=== PATIENT | female | born 1955 | race Caucasian/White ===

== ENCOUNTER 2017-12-05 04:18 | Inpatient (IN) ==
[2017-12-05] MEDS ORDERED: 0.9 % Sodium Chloride 1,000 ML IVC ONE (04:50)
--- NOTE | 2017-12-05 04:54 | Emergency Department Note ---
Disposition Clinical Impression: Multifocal pneumonia, Hyponatremia, Hypokalemia, Elevated serum creatinine Episode of syncope Qualifiers: Syncope type: unspecified Qualified Code(s): R55 - Syncope and collapse Disposition: Admitted As Inpatient Condition: Good Referrals: Ester Khan DO [Primary Care Provider] - Forms: ED Satisfaction Letter Syncope HPI - General Chief Complaint: ED Syncope Stated Complaint: syncopal episode Time Seen by Provider: 12/05/17 04:22 Source: patient Mode of arrival: private vehicle Limitations: no limitations Nursing Notes Reviewed: Yes Vital Signs Reviewed: Yes - History of Present Illness HPI Narrative: 62-year-old female history of hypertension, hyperlipidemia who presents to the ER via EMS due to a syncopal episode. Patient states prior to arrival she is set up after getting up out of bed and immediately felt lightheaded and passed out. States she denies prior history of syncopal episodes in the past. She had no prodromal symptoms including chest pain or shortness of breath. She reports currently that she states just feels achy all over. She has no current headache, chest pain, abdominal pain. No other complaints. 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 Number of episodes: 1 Prodromal Symptoms: lightheaded Witnessed: yes - by other Context: getting out of bed, standing up Injuries Sustained Associated with Event: none Current Symptoms: other (Generalized aches) History: none Treatments prior to arrival: none Associated trauma secondary to event: No - Related Data Home Medications Medication Instructions Recorded Confirmed ALPRAZolam 05/06/17 Aspirin 05/06/17 Chlorpheniramine Maleate 05/06/17 Claritin 05/06/17 Hydrochlorothiazide 05/06/17 Levothyroxine 05/06/17 Melatonin 05/06/17 Metoprolol 05/06/17 PriLOSEC 05/06/17 Proair Hfa 05/06/17 Vitamin D 05/06/17 05/06/17 Previous Rx's Medication Instructions Recorded Benzonatate [Tessalon] 100 mg PO TID #15 capsule 05/06/17 Acetaminophen [Tylenol] 500 mg PO Q6HR PRN #20 tablet 09/29/17 Azithromycin [Azithromycin 6-Tab 250 mg PO PER PKG DI #6 tab 09/29/17 Pack] Fluticasone Propionate Nasal 1 spray NS DAILY #1 bottle 09/29/17 [Flonase] Amoxicillin/Clavulanate [Augmentin] 875 mg PO BIDWM #20 tablet 11/29/17 Benzonatate [Tessalon] 100 mg PO TID #20 capsule 11/29/17 Promethazine [Phenergan] 12.5 mg PO Q8HR PRN 3 Days #10 mg 11/29/17 methylPREDNISolone [Medrol] 4 mg PO DAILY 6 Days #21 tablet 11/29/17 Allergies Allergy/AdvReac Type Severity Reaction Status Date / Time No Known Allergies Allergy Verified 12/02/17 23:06 All systems ED: reviewed and negative except as stated. Cardiovascular: Denies: chest pain Respiratory: Denies: dyspnea Gastrointestinal: Denies: abdominal pain Neurological: Reports: weakness. Denies: headache, numbness, paresthesias Past Medical History - Past Medical History Attestation: Yes The following information was validated with the patient. Source: patient Medical history: Reports: aortic aneurysm, asthma, hyperlipidemia, hypertension - Social History Smoking Status: Never smoker Smokeless Tobacco Status: No Alcohol use: Reports: none Drug use: Reports: none Physical Exam - General Limitations: no limitations General appearance: alert, in no apparent distress - Head Head exam: atraumatic, normocephalic - Eye Eye exam: Present: normal appearance - ENT ENT exam: normal exam - Neck Neck exam: Present: normal inspection, full ROM - Chest Chest inspection: Present: normal inspection, symmetric chest wall rise - Respiratory Respiratory exam: Present: normal lung sounds bilaterally - Cardiovascular Cardiovascular exam: Present: regular rate, normal rhythm, normal heart sounds - Abdominal Exam Abdominal exam: Present: soft, Non-Tender. Absent: tenderness - Extremities Exam Extremities exam: Present: normal inspection, full ROM - Expanded Upper Extremity Exam Shoulder exam: Present: normal inspection, full ROM Arm exam: Present: normal inspection, full ROM Elbow exam: Present: normal inspection, full ROM Forearm/Wrist exam: Present: normal inspection, full ROM Hand exam: Present: normal inspection, full ROM - Expanded Lower Extremity Exam Hip/Pelvis exam: Present: normal inspection, full ROM Upper leg exam: Present: normal inspection, full ROM Knee exam: Present: normal inspection, full ROM Lower leg exam: Present: normal inspection, full ROM Ankle exam: Present: normal inspection, full ROM Foot/toe exam: Present: normal inspection, full ROM - Neurological Exam Neurological exam: Present: alert, other (GCS 15. Alert. Answers questions appropriately. Moves all extremities equally. Nonfocal neurologic exam.) - Skin Skin exam: Present: warm, dry Course Course Narrative: Patient seen and examined. Her syncope was provoked by positional change. We will get an EKG, chest x-ray as well as his labs. Patient given IV fluids. - Reevaluation(s) Reevaluation #1: Discussed with patient that I reviewed her most recent CT showing an aortic aneurysm and we would further evaluate her syncope for a dissection study. Reevaluation #2: Discussed results of imaging and labs with the patient. She is agreeable with admission to the hospital. We will give her Rocephin and Zithromax. She is noted to be hyponatremic, hypokalemic with a metabolic alkalosis. She is not on a loop diuretic nor has she had protracted vomiting. We will replace her potassium here and check a magnesium level. Given her hyponatremia and pneumonia we will also check a Legionella antigen. Vital Signs Temperature 98.2 F 12/05/17 04:20 Pulse Rate 98 12/05/17 04:20 Respiratory Rate 20 12/05/17 04:20 Blood Pressure 131/58 12/05/17 04:20 O2 Sat by Pulse Oximetry 93 12/05/17 04:20 Temperature 98.2 F 12/05/17 04:20 Pulse Rate 82 12/05/17 06:30 Respiratory Rate 18 12/05/17 06:30 Blood Pressure 133/70 12/05/17 06:30 O2 Sat by Pulse Oximetry 95 12/05/17 06:30 Oxygen Delivery Oxygen Delivery Nasal Cannula Syncope - [facility] Narrative Medical decision making narrative: 62-year-old female presents to the ER via EMS due to syncopal episode. It was positional upon standing. She also reports generalized weakness and not feeling well with a cough on and off since October. She had a prior history of aortic aneurysm so we pursued a CTA of her chest which showed no evidence of enlargement however she is noted to have multifocal pneumonia. She is afebrile with a normal white count here. She is noted to have some metabolic derangements of unknown etiology. She is on hydrochlorothiazide and recently did finish a course of steroids for one week. I do not suspect adrenal insufficiency. Patient given Rocephin and Zithromax. We did give her 1 L of IV fluids for low GFR in the setting of contrast administration. Patient to be admitted to the hospitalist service for syncopal episode, multifocal pneumonia, hyponatremia, hypokalemia. - Lab Data Lab results reviewed: Yes I reviewed the patient's lab results. Result diagrams: 12/05/17 04:39 12/05/17 04:39 Lab Results 12/05/17 12/05/17 12/05/17 Range/Units 04:39 04:39 04:39 WBC 5.8 (4.3-11.1) K/mcL RBC 4.76 (3.82-4.97) M/mcL Hgb 14.1 (11.5-15.4) g/dL Hct 41.1 (35.3-44.9) % MCV 86.3 (83.0-100.0) fL MCH 29.6 (28.0-33.3) pg MCHC 34.3 (31.6-35.5) g/dL RDW 13.0 (11.5-14.5) % Plt Count 175 (140-400) K/mcL MPV 9.0 L (9.4-12.4) fL Immature Gran % 0.5 (0-4) % Seg Neutrophils % 80.5 % Lymphocytes % 11.6 % Monocytes % 7.1 % Eosinophils % 0.0 % Basophils % 0.3 % Neutrophils # 4.7 (1.6-8.9) K/mcL Lymphocytes # 0.7 (0.6-4.6) K/mcL Monocytes # 0.4 (0.0-1.3) K/mcL Eosinophils # 0.0 (0.0-0.6) K/mcL Basophils # 0.0 (0.0-0.2) K/mcL PT 11.4 (9.4-12.1) Seconds INR 1.1 APTT 25.4 L (26.0-36.0) Seconds Sodium 125 L (136-145) mEq/L Potassium 3.4 L (3.5-5.1) mEq/L Chloride 88 L (98-107) mEq/L Carbon Dioxide 31 H (23-29) mEq/L BUN 25 H (8-23) mg/dL Creatinine 1.21 H (0.60-1.20) mg/dL Est GFR ( Amer) 55 L (> 60) Est GFR (Non-Af Amer) 45 L (> 60) BUN/Creatinine Ratio 21 (6-26) Glucose 176 H (70-105) mg/dL Calculated Osmolality 269 L (280-300) Calcium 8.5 L (8.6-10.3) mg/dL Troponin I (< 0.04) ng/mL 12/05/17 Range/Units 04:39 WBC (4.3-11.1) K/mcL RBC (3.82-4.97) M/mcL Hgb (11.5-15.4) g/dL Hct (35.3-44.9) % MCV (83.0-100.0) fL MCH (28.0-33.3) pg MCHC (31.6-35.5) g/dL RDW (11.5-14.5) % Plt Count (140-400) K/mcL MPV (9.4-12.4) fL Immature Gran % (0-4) % Seg Neutrophils % % Lymphocytes % % Monocytes % % Eosinophils % % Basophils % % Neutrophils # (1.6-8.9) K/mcL Lymphocytes # (0.6-4.6) K/mcL Monocytes # (0.0-1.3) K/mcL Eosinophils # (0.0-0.6) K/mcL Basophils # (0.0-0.2) K/mcL PT (9.4-12.1) Seconds INR APTT (26.0-36.0) Seconds Sodium (136-145) mEq/L Potassium (3.5-5.1) mEq/L Chloride (98-107) mEq/L Carbon Dioxide (23-29) mEq/L BUN (8-23) mg/dL Creatinine (0.60-1.20) mg/dL Est GFR ( Amer) (> 60) Est GFR (Non-Af Amer) (> 60) BUN/Creatinine Ratio (6-26) Glucose (70-105) mg/dL Calculated Osmolality (280-300) Calcium (8.6-10.3) mg/dL Troponin I < 0.03 (< 0.04) ng/mL - Radiology Data Radiology results reviewed: Yes I reviewed the patient's radiology results. Abdomen/Pelvis CTA 12/05/17 05:02 IMPRESSION: Ascending aorta is again noted to be dilated measuring 4.3 cm. No evidence of aortic dissection or acute aortic injury. Multifocal pneumonia. Follow-up to resolution recommended. No acute intra-abdominal or intrapelvic abnormality. D/ / Yocasta Feliciano MD / Yocasta Feliciano MD Interpreting Provider: Yocasta Feliciano MD Chest CTA 12/05/17 05:02 IMPRESSION: Ascending aorta is again noted to be dilated measuring 4.3 cm. No evidence of aortic dissection or acute aortic injury. Multifocal pneumonia. Follow-up to resolution recommended. No acute intra-abdominal or intrapelvic abnormality. D/ / Yocasta Feliciano MD / Yocasta Feliciano MD Interpreting Provider: Yocasta Feliciano MD - EKG Data EKG attestation: Yes I reviewed and interpreted this EKG. EKG results narrative: EKG demonstrates sinus rhythm with a rate of 96 bpm. Left axis. Normal intervals. Normal R-wave progression. There is mild less than [address] depression in leads V3V6. No ST elevations. or changes from previous EKG include mild ST depression. S.B.A.R. - S.B.A.R. Situation: Demographics, MOA Background: Presenting Complaint, Relevant PMH, Meds, & Allergies Assessment: Vital Signs, Course and respsone to treatment, Exam Concerns, Patient/Family Expectation, Pertinant Lab Results, Outstanding Labs Recommendation: Barrier(s) to disposition, Recommendation based on pending studies, treatments, or consults S.B.A.R. Report Given to: Dr. Apollo DomínguezBTrungACarmela Repor Time: 06:50 Attestation Statement - Attestation Attestation: I, Jordin Gaspar MD, personally evaluated this patient and discussed their management with the resident physician. I reviewed the resident's note and agree with the documented findings, medical decision making, and plan of care. 62-year-old female presents to the emergency department by ambulance after she had a syncopal episode at home. Patient states that she awoke and got out of bed to go to the bathroom. She felt dizzy and lightheaded when she stood up. After a few steps the dizziness and lightheadedness became worse and patient passed out. She states that she did hit her head but denies any headache or pain in her head or scalp. No neck pain. No other pain or injury. Patient does have a history of an ascending aortic aneurysm but denies any chest or back pain. She denies any palpitations. She did feel short of breath. She states that she became clammy. On examination patient is a well-developed obese female in no acute distress. She is alert and oriented 3. There is no cyanosis or diaphoresis. Neck is supple and nontender with no lymphadenopathy and full range of motion. No carotid bruits. Chest is nontender to palpation. Breath sounds are clear and equal bilaterally. Heart regular rate and rhythm. Abdomen soft and nontender with normal bowel sounds. No gross focal neurological deficits. Labs reviewed. EKG shows normal sinus rhythm with a heart rate 94. She does have anterolateral T-wave inversions however this is unchanged from a previous EKG from 6 days ago. CTA of the chest and abdomen and pelvis showed: Ascending aorta is again noted to be dilated measuring 4.3 cm. No evidence of aortic dissection or acute aortic injury. Multifocal pneumonia. No acute intra -abdominal or intrapelvic abnormality. The hospitalist, Dr. Bustillos, was consulted and accepted admission the patient.
[2017-12-05 04:59] LABS: Basophils % 0.3 %; Hematocrit 41.1 % (35.3-44.9); Hemoglobin 14.1 g/dL (11.5-15.4); Immature Granulocytes % 0.5 % (0-4); Lymphocytes # 0.7 K/mcL (0.6-4.6); Lymphocytes % 11.6 %; Mean Corpuscular HGB Conc 34.3 g/dL (31.6-35.5); Mean Corpuscular Hemoglobin 29.6 pg (28.0-33.3); Mean Corpuscular Volume 86.3 fL (83.0-100.0); Monocytes # 0.4 K/mcL (0.0-1.3); Monocytes % 7.1 %; Neutrophils # 4.7 K/mcL (1.6-8.9); Platelet Count 175 K/mcL (140-400); Red Blood Count 4.76 M/mcL (3.82-4.97); Segmented Neutrophils % 80.5 %
[2017-12-05 05:12] LABS: Calcium 8.5 mg/dL (8.6-10.3); Potassium 3.4 mEq/L (3.5-5.1)
[2017-12-05 05:36] LABS: INR 1.1; Prothrombin Time 11.4 Seconds (9.4-12.1)
[2017-12-05 05:38] LABS: Activated Partial Thrombo Time 25.4 Seconds (26.0-36.0)
[2017-12-05] MEDS ORDERED: Azithromycin 500 MG in D5% in Water 250 ML IVPB ONE (06:22)
[2017-12-05] MEDS ORDERED: cefTRIAXone 1,000 MG in Water for inj. (sterile) 20 ML 10 ML IVP ONE (06:22)
[2017-12-05 07:40] LABS: Bilirubin,Urine Negative (Negative); Blood,Urine Small (Negative); Clarity,Urine Cloudy (Clear); Color,Urine Yellow (Yellow); Glucose,Urine (UA) Normal (Normal); Ketones,Urine Negative (Negative); Leukocyte Esterase,Urine Negative (Negative); Nitrite,Urine Negative (Negative); PH,Urine 6.5 pH Units (5.0-8.0); Protein,Urine Negative (Neg-Trace); Specific Gravity,Urine 1.024 (1.010-1.025); Urobilinogen,Urine Normal (Normal)
[2017-12-05 07:42] LABS: Bacteria,Urine None Seen per hpf (None-Few); Hyaline Casts,Urine None Seen per lpf (None-Few); Squamous Epithelial Cell,Urine Many per lpf (None-Few); WBC,Urine 0-3 per hpf (0-3)
--- NOTE | 2017-12-05 07:55 | Internal Med History&Physical ---
Date of Encounter: 12/05/17 Time of Encounter: 07:50 Assessment and Plan (1) Episode of syncope Current visit: Yes Status: Acute resent patient is very suggestive of vasodepressor syncopevs orthostatic hypotension. IV hydration and obtain 2-D echo and monitor on telemetry and cardiology consult Qualifiers: Syncope type: unspecified Qualified Code(s): R55 - Syncope and collapse (2) Hypokalemia Current visit: Yes Status: Acute due to vommiting (3) Hyponatremia Current visit: Yes Status: Acute Likely hypoosmolar hypovolemic hyponatremia was started on normal saline hydration (4) Multifocal pneumonia Current visit: Yes Status: Acute We will start patient on Zosyn she is afebrile white count is normal Internal Medicine - H&P: HPI Chief complaint: syncope Admitted From: Emergency Dept Plans for Post Hospital Care: Home History of present illness: Ms. Rosales is a 62 year old female Patient with history of hypertension, obesity, high cholesterol, asthma, aortic aneurysm. Patient woke up this morning about 2;30 am to go to the restroom she suddenly felt lightheaded and woozy and then she called her but before he can respond she passed out. Patient was then brought to the emergency room she was not having any chest pain no prior cardiac event history , no shortness of breath . in the last few days she has had some dry cough as nonproductive some subjective fever no chills has some episode of vomiting In the emergency room evaluation she was afebrile blood pressure was normal CTA of the chest shows multifocal pneumonia there is no evidence of pulmonary embolism because of history of aneurysm that was also evaluated no aortic dissection and aneurysm measured 4.3 cm. Also has some electrolyte abnormalities na 125 potassium 3.4 and some minor Greyson creatinine 1.2 patient was admitted and started on antibiotic. We will consult cardiology and obtain 2-D echo. Past Med Surg Social Fam HX - Past Medical History Medical history: aortic aneurysm, asthma, hyperlipidemia, hypertension - Social History Smoking Status: Never smoker Smokeless Tobacco Status: No Alcohol use: none Drug use: none Internal Medicine - H&P: Meds Albuterol Sulfate [Proair Hfa] 1 puff IH AD 05/06/17 [History] Aspirin [Lo-Dose Aspirin EC] 81 mg PO DAILY 05/06/17 [History] Levothyroxine Sodium [Levoxyl] 75 mcg PO DAILY 05/06/17 [History] Loratadine [Claritin] 10 mg PO DAILY 05/06/17 [History] Melatonin [Melatin] 3 mg PO HS 05/06/17 [History] Metoprolol Succinate 100 mg PO DAILY 05/06/17 [History] Omeprazole [PriLOSEC] 20 mg PO DAILY 05/06/17 [History] hydroCHLOROthiazide [Hydrochlorothiazide] 25 mg PO DAILY 05/06/17 [History] Fluticasone Propionate Nasal [Flonase] 1 spray NS DAILY #1 bottle 09/29/17 [Rx] Amoxicillin/Clavulanate [Augmentin] 875 mg PO BIDWM #20 tablet 11/29/17 [Rx] Benzonatate [Tessalon] 100 mg PO TID #20 capsule 11/29/17 [Rx] Promethazine [Phenergan] 12.5 mg PO Q8HR PRN 3 Days #10 mg 11/29/17 [Rx] Fluticasone Propionate [Flovent Hfa] 1 puff IH DAILY 12/05/17 [History] Losartan Potassium [Cozaar] 100 mg PO DAILY 12/05/17 [History] Pravastatin Sodium 10 mg PO DAILY 12/05/17 [History] 3 Allergy/AdvReac Type Severity Reaction Status Date / Time No Known Allergies Allergy Verified 12/02/17 23:06 All Systems PM: A 10-system review of systems was performed and is negative for pertinent findings except as documented above in the HPI. - Constitutional Constitutional: no chills, no fever(s), no night sweats - EENT Eyes: no change in vision, no discharge, no pain, no photophobia Ears: no ear discharge, no ear pain, no tinnitus Nose, mouth and throat: no dysphagia, no nasal discharge, no neck pain, no sore throat - Cardiovascular Cardiovascular ROS IM: lightheadedness, syncope - Respiratory Respiratory: no cough, no dyspnea, no wheezing, no excessive phlegm production - Gastrointestinal Gastrointestinal: no abdominal pain, no diarrhea, no hematemesis, no hematochezia, no melena, no nausea, no vomiting - Genitourinary Genitourinary: no change in urinary stream, no dysuria, no flank pain, no hematuria - Constitutional Vitals: Temp Pulse Resp BP Pulse Ox 98.6 F 83 18 119/69 99 12/05/17 07:23 12/05/17 07:23 12/05/17 07:23 12/05/17 07:23 12/05/17 07:23 - Eye Eye exam: Present: PERRL, conjuntiva pink, sclera anicteric Pupils: Present: PERRL - Neck Neck exam general surgery: Present: supple, trachea midline. Absent: lymphadenopathy - Respiratory Respiratory exam: Present: accessory muscle use, rales, rhonchi, wheezes - Cardiovascular Cardiovascular exam: Present: RRR, +S1, +S2. Absent: diastolic murmur, gallop, rubs, systolic murmur - GI/Abdominal GI/Abdominal exam: Present: normal bowel sounds, soft, no peritoneal signs. Absent: distended, tenderness Internal Med - H&P Results - Labs CBC & Chem 7: 12/05/17 04:39 12/05/17 04:39
[2017-12-05 07:57] LABS: RBC,Urine 0-3 per hpf (0-3)
[2017-12-05 07:58] LABS: Yeast,Urine Few per hpf (None Seen)
[2017-12-05] MEDS ORDERED: Naloxone 0.4 MG/ML INJ IVP PRN (08:00)
[2017-12-05] MEDS: Aspirin Enteric Coated 81 MG Tablet PO SCH (08:56)
[2017-12-05] MEDS: Metoprolol XL (24 HR) Succ 50 MG TAB.ER.24H PO SCH (08:56)
[2017-12-05] MEDS: Benzonatate 100 MG CAPSULE PO SCH ×3 (08:56→20:35)
[2017-12-05] MEDS: Loratadine 10 MG TABLET PO SCH (08:56)
[2017-12-05] MEDS: 0.9 % Sodium Chloride 1,000 ML IVC SCH (08:57)
--- NOTE | 2017-12-05 09:03 | Cardiology Consult Note ---
Date of Encounter: 12/05/17 Time of Encounter: 09:00 Assessment and Plan (1) Episode of syncope Current Visit: Yes Status: Acute Pt 1 episode of syncope last night after getting out of bed in the dark to go to the bathroom. Patient felt lightheaded upon standing and then passed out. No sxs suggestive of seizure. With hx of poor PO intake and recent illness in the setting of arising from bed , coupled with hyponatremia and hypokalemia on lab work likely orthostatic in nature. Patient does report occasional irregular heart beat that makes he sick to her stomach patient denies feeling this sensation last night, but still needs to be considered. Pt with hx of ascending aortic aneurysm. Stable based on CTA this admission. Plan: Check orthostatic BPs continue IV rehydration Correct electrolyte abnormalities follow up on ECHO treat underlying infection. Keep patient on telemetry to monitor for arrhythmia Qualifiers: Syncope type: unspecified Qualified Code(s): R55 - Syncope and collapse Discussion w patient/family: The assessment and plan as outlined above was discussed with the patient and/or family members who expressed understanding and agreement. All questions were answered. Thank you for involving us in the care of your patient. Please call with any questions. History of Present Illness Consult date: 12/05/17 Requesting physician: Primo Ayers Consult reason: syncope Chief complaint: syncope History of present illness: Ms. Rosales is a 62 year old female c PMHx of Ascending aortic aneursym, HLD, HTN, asthma, hypothyroidism who reports to the [facility] after episode of Syncope overnight. Patient reports getting out of bed in the dark feeling lightheaded and being disoriented and then waking up on the ground having knocked over her jewelry case. Patient's syncope was reported witnessed by who reports no convulsive activity and that she was only out momentarily. Patient denies hitting head, biting tongue, or losing control of bladder, NUÑEZ, Chest Pain, palpitations. Patient reports she has had flu like sxs for the last several weeks and has visited the ER/urgent care 2 other times prior to this admission in the last week for these sxs. Patient reports poor PO intake over the last several days. Patient denies personal hx of CAD although had a strong family hx including MIs prior to age 50. Patient denies personal hx of stroke or seizure. Patient reports she on rate occasions does have a funny heart beat she can feel that makes her sick to her stomach, but that this has never been worked up. On admission patient was found to be hyponatremic and hypokalemic. Pts Cr was elevated at 1.2 baseline 0.8. EKG showed NSR and no changes from prior. Trops negative x 2 Past Med Surg Social Fam HX - Past Medical History Medical history: aortic aneurysm, asthma, hyperlipidemia, hypertension Psychiatric history: no psych history - Past Surgical History Surgical History: cholecystectomy, MAYLIN/BSO - Social History Smoking Status: Former smoker Smokeless Tobacco Status: No Alcohol use: none Drug use: none Medications and Allergies Albuterol Sulfate [Proair Hfa] 1 puff IH AD 05/06/17 [History] Aspirin [Lo-Dose Aspirin EC] 81 mg PO DAILY 05/06/17 [History] Levothyroxine Sodium [Levoxyl] 75 mcg PO DAILY 05/06/17 [History] Loratadine [Claritin] 10 mg PO DAILY 05/06/17 [History] Melatonin [Melatin] 3 mg PO HS 05/06/17 [History] Metoprolol Succinate 100 mg PO DAILY 05/06/17 [History] Omeprazole [PriLOSEC] 20 mg PO DAILY 05/06/17 [History] hydroCHLOROthiazide [Hydrochlorothiazide] 25 mg PO DAILY 05/06/17 [History] Fluticasone Propionate Nasal [Flonase] 1 spray NS DAILY #1 bottle 09/29/17 [Rx] Amoxicillin/Clavulanate [Augmentin] 875 mg PO BIDWM #20 tablet 11/29/17 [Rx] Benzonatate [Tessalon] 100 mg PO TID #20 capsule 11/29/17 [Rx] Promethazine [Phenergan] 12.5 mg PO Q8HR PRN 3 Days #10 mg 11/29/17 [Rx] Fluticasone Propionate [Flovent Hfa] 1 puff IH DAILY 12/05/17 [History] Losartan Potassium [Cozaar] 100 mg PO DAILY 12/05/17 [History] Pravastatin Sodium 10 mg PO DAILY 12/05/17 [History] 3 Allergy/AdvReac Type Severity Reaction Status Date / Time No Known Allergies Allergy Verified 12/02/17 23:06 All Systems Review: A 10-system review of systems was performed and is negative for pertinent findings except as documented above in the HPI. Physical Examination Vital Signs, Last 4 Hours Temp Pulse Resp BP Pulse Ox 12/05/17 08:15 98 12/05/17 07:23 98.6 F 83 18 119/69 99 12/05/17 07:01 18 124/65 General: Conversant, No Apparent Distress HEENT: Atraumatic, Normocephaly, Mucus Membranes Moist Neck: No JVD, Normal carotid pulses Cardiac: Reg Rate and Rhythm, Normal S1 and S2, No Murmur Lungs: Normal Breath Sounds, No Wheeze, Rales, Rhonchi, Other (patient taking short gasping breaths) Neuro: Alert and responsive, No focal deficits noted Abdomen: Soft, Non-Tender Skin: No rashes noted on visualized skin Musculoskeletal: No Chest Wall Tenderness Extremities: No Clubbing, No Cyanosis, No Edema, Normal Pulses Results 12/05/17 04:39 12/05/17 04:39 Consult Discharge Plan - Plan Referrals: Ester Khan DO [Primary Care Provider] -
[2017-12-05 10:23] LABS: Adenovirus Not Detected (Not Detect); Coronavirus 229E Not Detected (Not Detect); Coronavirus HKU1 Not Detected (Not Detect); Coronavirus NL63 Not Detected (Not Detect); Coronavirus OC43 Not Detected (Not Detect); Human Metapneumovirus Not Detected (Not Detect); Human Rhinovirus/Enterovirus Not Detected (Not Detect)
[2017-12-05 10:24] LABS: Bordetella Pertussis Not Detected (Not Detect); Chlamydophila pneumoniae Not Detected (Not Detect); Influenza A Subtype 2009 H1 ***DETECTED*** (Not Detect); Influenza A Untypeable Not Detected (Not Detect); Influenza B Not Detected (Not Detect); Mycoplasma pneumoniae Not Detected (Not Detect); Parainfluenza Virus 1 Not Detected (Not Detect); Parainfluenza Virus 2 Not Detected (Not Detect); Parainfluenza Virus 3 Not Detected (Not Detect); Parainfluenza Virus 4 Not Detected (Not Detect); Respiratory Syncytial Virus Not Detected (Not Detect)
[2017-12-05] MEDS: Fluticasone Propionate Nasal 50 MCG/SPRAY BOTTLE NS SCH (10:44)
[2017-12-05] MEDS: Beclomethasone 80mcg MDI IH SCH ×2 (11:02→21:29)
[2017-12-05] MEDS: Ipratropium/Albuterol Neb 3 ML IH SCH ×3 (11:03→21:29)
--- NOTE | 2017-12-05 14:38 | Electrocardiograph Report ---
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
[2017-12-05] MEDS: Melatonin 3 MG TABLET PO SCH (20:35)
[2017-12-06] MEDS: 0.9 % Sodium Chloride 1,000 ML IVC SCH (00:45)
[2017-12-06] MEDS ORDERED: Acetaminophen 325 MG TABLET PO PRN (00:52)
[2017-12-06] MEDS: Ipratropium/Albuterol Neb 3 ML IH SCH ×4 (04:16→22:46)
[2017-12-06 05:08] LABS: Alanine Aminotransferase 12 Units/L (7-52); Albumin/Globulin Ratio 1.5 (1.1-2.2); Alkaline Phosphatase 78 Units/L (34-104); Aspartate Amino Transferase 21 Units/L (13-39); BUN/Creatinine Ratio 19 (6-26); Bilirubin,Total 0.3 mg/dL (0.3-1.0); Blood Urea Nitrogen 16 mg/dL (8-23); Calcium 7.8 mg/dL (8.6-10.3); Carbon Dioxide 27 mEq/L (23-29); Chloride 96 mEq/L (98-107); Chol/HDL Ratio 4.6 (0-4.9); Cholesterol 123 mg/dL (< 200); Glucose 90 mg/dL (70-105); HDL Cholesterol 27 mg/dL (40-59); LDL Cholesterol,Calculated 79 mg/dL (0-99); Magnesium 1.9 mg/dL (1.6-2.6); Osmolality,Calculated 269 (280-300); Potassium 3.4 mEq/L (3.5-5.1); Sodium 129 mEq/L (136-145); Triglycerides 87 mg/dL (< 150); eGFR For African Americans > 60 (> 60); eGFR For Non-African Americans > 60 (> 60)
[2017-12-06] MEDS: *HR* Enoxaparin 40 MG/0.4 ML SYRINGE SQ SCH (05:16)
--- NOTE | 2017-12-06 08:26 | Event Note ---
<Shaun Harrison - Last Filed: 12/06/17 10:16> Date of Encounter: 12/06/17 Time of Encounter: 08:21 Pt seen and examined by me at bedside. Patient reports feeling better. Patient' s echo resulted last night. Showed preserved EF of 65%, no wall motion abnormalities. Patient has moderate Aortic regurge 2/2 ascending aortic aneurysm which is stable in size based on past CTs. Based on clinical picture syncope appears to be orthostatic in nature. Do not suspect cardiac cause. No need for further cardiac work up at this time. <Juan Luis Zarco - Last Filed: 12/06/17 10:25> Date of Encounter: 12/06/17 I examined this patient and my medical decision-making was reviewed with the Resident Physician. I agree with the documented findings, disposition and treatment plan as described except to the extent set forth below.
[2017-12-06] MEDS: Benzonatate 100 MG CAPSULE PO SCH ×3 (08:47→21:49)
[2017-12-06] MEDS: Aspirin Enteric Coated 81 MG Tablet PO SCH (08:48)
[2017-12-06] MEDS: Metoprolol XL (24 HR) Succ 50 MG TAB.ER.24H PO SCH (08:48)
[2017-12-06] MEDS: Loratadine 10 MG TABLET PO SCH (08:48)
[2017-12-06] MEDS: Beclomethasone 80mcg MDI IH SCH ×2 (10:54→22:46)
[2017-12-06] MEDS: Fluticasone Propionate Nasal 50 MCG/SPRAY BOTTLE NS SCH (12:50)
--- NOTE | 2017-12-06 18:05 | Internal Med Progress Note ---
Date of Encounter: 12/06/17 Time of Encounter: 18:01 - Assessment and plan (1) Episode of syncope Current Visit: Yes Status: Acute Assessment and plan: Likely dehydration and orthostatic hypotension related to pneumonia and Influenza A. She was given IV fluid, will monitor patient in case more hydration needed. Cardiology consulted and echocardiogram ordered. Echo 12/06: LVEF 65%, asymmetric basal septal hypertrophy, moderate aortic regurgitation. Dilated ascending aorta. Qualifiers: Syncope type: unspecified Qualified Code(s): R55 - Syncope and collapse (2) Multifocal pneumonia Current Visit: Yes Status: Acute Assessment and plan: Continue Zosyn, obtain urine antigens, sputum culture, procalcitonin for therapy monitoring. (3) Influenza A (H1N1) Current Visit: Yes Status: Acute Assessment and plan: Positive on serology. Likely contributed to patient's decreased appetite and dehydration. She is likely out of 48 hour window, but because of extent of symptoms, will start Tamiflu. (4) Hypokalemia Current Visit: Yes Status: Acute (5) Hyponatremia Current Visit: Yes Status: Acute Assessment and plan: Patient currently tolerating diet, will monitor for improvement. (6) Ascending aorta dilation Current Visit: Yes Status: Acute Assessment and plan: As seen on CTA chest and echocardiogram. Will d/w Cardiology if further workup warranted at this point. - Subjective Interval history: Patient states she is feeling much better today. - Constitutional Vitals: Temp Pulse Resp BP Pulse Ox 97.9 F 63 16 100/61 98 12/06/17 15:03 12/06/17 15:03 12/06/17 16:06 12/06/17 15:03 12/06/17 16:06 Exam: - Eye Eye exam: Present: PERRL, conjuntiva pink, sclera anicteric Pupils: Present: PERRL - Neck Neck exam general surgery: Present: supple, trachea midline. Absent: lymphadenopathy - Respiratory Respiratory exam: Present: accessory muscle use, rales, rhonchi, wheezes - Cardiovascular Cardiovascular exam: Present: RRR, +S1, +S2. Absent: diastolic murmur, gallop, rubs, systolic murmur - GI/Abdominal GI/Abdominal exam: Present: normal bowel sounds, soft, no peritoneal signs. Absent: distended, tenderness Cap refill time >3 sec MMM Internal Medicine: Result - Labs CBC & Chem 7: 12/05/17 04:39 12/06/17 03:49 Labs: BMP 12/06/17 03:49 Sodium 129 L Potassium 3.4 L Chloride 96 L Carbon Dioxide 27 BUN 16 Creatinine 0.86 Glucose 90 Calcium 7.8 L Cardiac Enzymes 12/05/17 Range/Units 21:18 Troponin I < 0.03 (< 0.04) ng/mL Liver Function 12/06/17 Range/Units 03:49 Total Bilirubin 0.3 (0.3-1.0) mg/dL AST 21 (13-39) Units/L ALT 12 (7-52) Units/L Alkaline Phosphatase 78 (34-104) Units/L Albumin 3.0 L (3.5-5.7) g/dL - ABG Interpretation ABG results: PT/INR, D-dimer PT 11.4 Seconds (9.4-12.1) 12/05/17 04:39 Consult Discharge Plan - Plan Referrals: Ester Khan DO [Primary Care Provider] -
[2017-12-06] MEDS ORDERED: Calcium Gluconate 2,000 MG in 0.9 % Sodium Chloride 100 ML IVPB ONE (18:13)
[2017-12-06] MEDS: Melatonin 3 MG TABLET PO SCH (21:49)
[2017-12-07] MEDS: Ipratropium/Albuterol Neb 3 ML IH SCH ×4 (04:13→22:42)
[2017-12-07] MEDS: *HR* Enoxaparin 40 MG/0.4 ML SYRINGE SQ SCH (06:29)
[2017-12-07 08:15] LABS: Basophils % 0.5 %; Eosinophils % 0.5 %; Hematocrit 32.8 % (35.3-44.9); Immature Granulocytes % 0.5 % (0-4); Lymphocytes % 24.3 %; Mean Corpuscular HGB Conc 34.5 g/dL (31.6-35.5); Mean Platelet Volume 8.6 fL (9.4-12.4); Monocytes # 0.4 K/mcL (0.0-1.3); Monocytes % 9.3 %; Neutrophils # 2.6 K/mcL (1.6-8.9); Platelet Count 176 K/mcL (140-400); Red Blood Count 3.77 M/mcL (3.82-4.97); Red Cell Distribution Width 13.3 % (11.5-14.5); Segmented Neutrophils % 64.9 %
[2017-12-07 08:18] LABS: Hemoglobin 11.3 g/dL (11.5-15.4)
[2017-12-07 08:33] LABS: BUN/Creatinine Ratio 13 (6-26); Blood Urea Nitrogen 9 mg/dL (8-23); Calcium 8.1 mg/dL (8.6-10.3); Carbon Dioxide 24 mEq/L (23-29); Chloride 103 mEq/L (98-107); Glucose 92 mg/dL (70-105); Osmolality,Calculated 272 (280-300); Sodium 132 mEq/L (136-145); eGFR For African Americans > 60 (> 60); eGFR For Non-African Americans > 60 (> 60)
[2017-12-07] MEDS: Aspirin Enteric Coated 81 MG Tablet PO SCH (09:39)
[2017-12-07] MEDS: Loratadine 10 MG TABLET PO SCH (09:39)
[2017-12-07] MEDS: Metoprolol XL (24 HR) Succ 50 MG TAB.ER.24H PO SCH (09:39)
[2017-12-07] MEDS: Benzonatate 100 MG CAPSULE PO SCH ×3 (09:39→21:11)
[2017-12-07] MEDS: Beclomethasone 80mcg MDI IH SCH ×2 (11:12→22:42)
[2017-12-07] MEDS: Fluticasone Propionate Nasal 50 MCG/SPRAY BOTTLE NS SCH (14:56)
--- NOTE | 2017-12-07 20:43 | Internal Med Progress Note ---
Date of Encounter: 12/07/17 Time of Encounter: 14:40 - Assessment and plan (1) Episode of syncope Current Visit: Yes Status: Acute Assessment and plan: Likely dehydration and orthostatic hypotension related to pneumonia and Influenza A. She was given IV fluid, will monitor patient in case more hydration needed. Cardiology consulted and echocardiogram ordered. Echo 12/06: LVEF 65%, asymmetric basal septal hypertrophy, moderate aortic regurgitation. Dilated ascending aorta. Sodium improving, continue to replace electrolytes as needed. Acute drop in hemoglobin is likely hemodilutional. Patient dehydrated from flu with hyponatremia, no signs of anemia. Patient would like to hold off from getting AM labs. Will monitor tonight, if okay with her will check again. Likely discharge home tomorrow Qualifiers: Syncope type: unspecified Qualified Code(s): R55 - Syncope and collapse (2) Multifocal pneumonia Current Visit: Yes Status: Acute Assessment and plan: Continue Zosyn, obtain urine antigens, sputum culture, procalcitonin for therapy monitoring. (3) Influenza A (H1N1) Current Visit: Yes Status: Acute Assessment and plan: Positive on serology. Likely contributed to patient's decreased appetite and dehydration. She is likely out of 48 hour window, but because of extent of symptoms, will start Tamiflu. (4) Hypokalemia Current Visit: Yes Status: Acute (5) Hyponatremia Current Visit: Yes Status: Acute Assessment and plan: Patient currently tolerating diet, will monitor for improvement. (6) Ascending aorta dilation Current Visit: Yes Status: Acute Assessment and plan: As seen on CTA chest and echocardiogram. Will d/w Cardiology if further workup warranted at this point. - Subjective Interval history: No acute events. Continues to improve. Fatigue improved, no syncopal episodes. - Constitutional Vitals: Temp Pulse Resp BP Pulse Ox 97.7 F 73 17 137/76 97 12/07/17 19:30 12/07/17 19:30 12/07/17 19:30 12/07/17 19:30 12/07/17 19:30 - Head Head exam: Present: atraumatic, normocephalic - Eye Eye exam: Present: PERRL, conjuntiva pink, sclera anicteric Pupils: Present: PERRL - Neck Neck exam general surgery: Present: supple, trachea midline. Absent: lymphadenopathy - Respiratory Respiratory exam: Present: CTAB. Absent: accessory muscle use, rales, rhonchi, wheezes - Cardiovascular Cardiovascular exam: Present: RRR, +S1, +S2. Absent: diastolic murmur, gallop, rubs, systolic murmur - GI/Abdominal GI/Abdominal exam: Present: normal bowel sounds, soft, no peritoneal signs. Absent: distended, tenderness - Extremities Exam Extremities exam: Present: warm, radial pulses palpable and symmetrical. Absent : calf tenderness, cyanotic, pedal edema - Neurological Exam Neurological exam: Present: CN II-XII intact, oriented X3, no focal deficits. Absent: pronater drift, facial droop, speech deficit - Skin Skin exam: Present: dry, intact Internal Medicine: Result - Labs CBC & Chem 7: 12/07/17 07:35 12/07/17 07:35 Labs: Short CBC 12/07/17 Range/Units 07:35 WBC 4.1 L (4.3-11.1) K/mcL Hgb 11.3 L D (11.5-15.4) g/dL Hct 32.8 L (35.3-44.9) % Plt Count 176 (140-400) K/mcL Neutrophils # 2.6 (1.6-8.9) K/mcL BMP 12/07/17 07:35 Sodium 132 L Potassium 4.0 Chloride 103 Carbon Dioxide 24 BUN 9 Creatinine 0.68 Glucose 92 Calcium 8.1 L - ABG Interpretation ABG results: PT/INR, D-dimer PT 11.4 Seconds (9.4-12.1) 12/05/17 04:39 Consult Discharge Plan - Plan Referrals: Ester Khan DO [Primary Care Provider] -
[2017-12-07] MEDS: Melatonin 3 MG TABLET PO SCH (21:07)
[2017-12-07] MEDS ORDERED: *HR* LORazepam 0.5 MG TABLET PO ONE (22:30)
[2017-12-08] MEDS: Ipratropium/Albuterol Neb 3 ML IH SCH ×2 (03:40→10:40)
[2017-12-08] MEDS: *HR* Enoxaparin 40 MG/0.4 ML SYRINGE SQ SCH (05:54)
[2017-12-08] MEDS ORDERED: cefTRIAXone 1,000 MG in Water for inj. (sterile) 10 ML IVP SCH (09:00)
[2017-12-08] MEDS: Metoprolol XL (24 HR) Succ 50 MG TAB.ER.24H PO SCH (09:42)
[2017-12-08] MEDS: Benzonatate 100 MG CAPSULE PO SCH (09:42)
[2017-12-08] MEDS: Aspirin Enteric Coated 81 MG Tablet PO SCH (09:42)
[2017-12-08] MEDS: Loratadine 10 MG TABLET PO SCH (09:42)
[2017-12-08] MEDS: Beclomethasone 80mcg MDI IH SCH (10:39)
--- NOTE | 2017-12-08 10:53 | Discharge Summary ---
Date of Encounter: 12/08/17 Time of Encounter: 10:51 - Discharge Diagnosis (1) Episode of syncope Priority: Primary Status: Acute Qualifiers: Syncope type: unspecified Qualified Code(s): R55 - Syncope and collapse (2) Multifocal pneumonia Priority: Secondary Status: Acute (3) Influenza A (H1N1) Priority: Secondary Status: Acute (4) Hypokalemia Priority: Secondary Status: Resolved (5) Hyponatremia Priority: Secondary Status: Acute (6) Ascending aorta dilation Priority: Secondary Status: Acute Comments: Patient is follow-up with this as outpatient for several years now. - Discharge Medications Prescriptions: Albuterol Sulfate [Albuterol Inhaler] 2 puff IH Q4HR PRN #1 hfa.aer.ad PRN Reason: Shortness Of Breath/Wheezing levoFLOXacin [Levaquin] 750 mg PO DAILY #7 tablet Home Medications: Albuterol Sulfate [Proair Hfa] 1 puff IH AD 05/06/17 [History] Aspirin [Lo-Dose Aspirin EC] 81 mg PO DAILY 05/06/17 [History] Levothyroxine Sodium [Levoxyl] 75 mcg PO DAILY 05/06/17 [History] Loratadine [Claritin] 10 mg PO DAILY 05/06/17 [History] Melatonin [Melatin] 3 mg PO HS 05/06/17 [History] Metoprolol Succinate 100 mg PO DAILY 05/06/17 [History] Omeprazole [PriLOSEC] 20 mg PO DAILY 05/06/17 [History] hydroCHLOROthiazide [Hydrochlorothiazide] 25 mg PO DAILY 05/06/17 [History] Fluticasone Propionate Nasal [Flonase] 1 spray NS DAILY #1 bottle 09/29/17 [Rx] Benzonatate [Tessalon] 100 mg PO TID #20 capsule 11/29/17 [Rx] Promethazine [Phenergan] 12.5 mg PO Q8HR PRN 3 Days #10 mg 11/29/17 [Rx] Fluticasone Propionate [Flovent Hfa] 1 puff IH DAILY 12/05/17 [History] Losartan Potassium [Cozaar] 100 mg PO DAILY 12/05/17 [History] Pravastatin Sodium 10 mg PO DAILY 12/05/17 [History] Albuterol Sulfate [Albuterol Inhaler] 2 puff IH Q4HR PRN #1 hfa.aer.ad 12/08/17 [Rx] levoFLOXacin [Levaquin] 750 mg PO DAILY #7 tablet 12/08/17 [Rx] Allergies/Adverse Reactions: 3 Allergy/AdvReac Type Severity Reaction Status Date / Time No Known Allergies Allergy Verified 12/02/17 23:06 Date of admission: 12/05/17 08:00 Primary care physician: Ester Khan DO Discharging clinician: Ulises Thomas - Patient Status Disposition: Home, Self-Care Condition: Good Functional capacity at discharge: independent ambulation Overall status at discharge: patient is progressing back to baseline - Discharge Instructions Follow Up With: Ester Khan DO [Primary Care Provider] - - Diet and Activity Activity: increase activity as tolerated Diet: advance to your usual diet Hospital course: Ms. Rosales is a 62 year old female with history of hypertension, obesity, high cholesterol, asthma, aortic aneurysm. Patient felt lightheaded and woozy and then she called her but before he can respond she passed out. Patient was then brought to the emergency room she was not having any chest pain no prior cardiac event history , no shortness of breath. In last few days she has had some dry cough as nonproductive some subjective fever no chills has some episode of vomiting In the emergency room evaluation she was afebrile blood pressure was normal CTA of the chest shows multifocal pneumonia there is no evidence of pulmonary embolism because of history of aneurysm that was also evaluated no aortic dissection and aneurysm measured 4.3 cm (patient known history and she follows up with this). Also has low sodium and potassium. She tested positive for flu. Cultures were obtained came back no growth. She was started IV fluid hydration, on Tamiflu and Zosyn . Cardiology was consulted and 2D echocardiogram was obtained, with no findings to explain syncope. Ruled most likely syncopal episode from dehydration. Patient hydration status improved, sodium and potassium near normal. On day of discharge patient refused follow-up labs. She is agreeable to repeating labs in 2 days - Repeat chest x-ray in 3 weeks - BMP in 2 days - one week of Levaquin on discharge - albuterol inhaler prn - Time Spent with Patient Total time spent providing and/or coordinating discharge services: - Constitutional Vitals: Temp Pulse Resp BP Pulse Ox 98.0 F 81 16 163/91 96 12/08/17 07:30 12/08/17 07:30 12/08/17 10:42 12/08/17 07:30 12/08/17 10:42 - Head Head exam: Present: atraumatic, normocephalic - Eye Eye exam: Present: PERRL, conjuntiva pink, sclera anicteric Pupils: Present: PERRL - Neck Neck exam general surgery: Present: supple, trachea midline. Absent: lymphadenopathy - Respiratory Respiratory exam: Present: CTAB. Absent: accessory muscle use, rales, rhonchi, wheezes - Cardiovascular Cardiovascular exam: Present: RRR, +S1, +S2. Absent: diastolic murmur, gallop, rubs, systolic murmur - GI/Abdominal GI/Abdominal exam: Present: normal bowel sounds, soft, no peritoneal signs. Absent: distended, tenderness - Extremities Exam Extremities exam: Present: warm, radial pulses palpable and symmetrical. Absent : calf tenderness, cyanotic, pedal edema - Neurological Exam Neurological exam: Present: CN II-XII intact, oriented X3, no focal deficits. Absent: pronater drift, facial droop, speech deficit - Skin Skin exam: Present: dry, intact
[2017-12-08 11:47] VITALS: BP 160/88
[2017-12-10 09:28] LABS: Mycoplasma pneumoniae IgG 0.06 U/L (<=0.09)
== END 2017-12-08 14:48 | disposition home or self-care (01) | DRG 139 ==
LOC: EMEROO 04:18 → 2NENU 04:18
PROVIDERS: ADMIT Pediatrics; ATTEND Internal Medicine